=== PATIENT | male | born 1975 | race Caucasian/White ===

== ENCOUNTER 2024-07-12 13:00 | Emergency (ER) | payer SELFPAY ==
--- OUTSIDE RECORDS SUMMARY | 2024-07-12 13:07 | XMS_ITS | Referral Summary ---
Author Organization [facility] Address [address] [place] [address] Care Team Providers Care Loan Associate Name Role Phone No Ref-Primary, Physician Primary Care Provider Shayla Powers PA-C Unavailable [phone] Allergies Active Allergy Reactions Criticality Noted Date Comments Phenytoin 06/05/2011 Medications Multiple Vitamin (MULTIVITAMIN ADULT PO) Take by mouth daily Active busPIRone (BUSPAR) 5 MG tabletIndicatio ns:Situational anxiety Take 1 tablet (5 mg) by mouth 2 times daily 20 tablet 1 Active Additional Information Patient not taking.Reported on 12/26/2023 escitalopram (LEXAPRO) 10 MG tabletIndicatio ns:Anxiety Take 1 tablet (10 mg) by mouth daily 90 tablet 1 4 Active cephALEXin (KEFLEX) 500 MG capsule TAKE ONE CAPSULE BY MOUTH ONE HOUR PRIOR TO PROCEDURE Active amoxicillin-cla vulanate (AUGMENTIN) 875-125 MG tablet TAKE ONE TABLET BY MOUTH TWICE A DAY FOR 10 DAYS. TAKE WITH FOOD OR MILK 4 Active Active Problems Problem Noted Date Diagnosed Date Diverticulitis 12/24/2019 Immunizations Name Administration Dates Next Due Flu, Unspecified 06/30/2010 MMR 03/23/1993 TDAP Vaccine (Adacel) 01/30/2010 TDAP Vaccine (Boostrix) 10/13/2014 Td (Adult), Adsorbed 03/23/1993 Social History Tobacco Use Types Packs/Day Years Used Date Smoking Tobacco: Never Passive Smoke Exposure: Never Smokeless Tobacco: Never Tobacco Cessation:Counseling Given: Not Answered Alcohol Use Standard Drinks/Week Comments Yes 0 (1 standard drink = 0.6 oz pur e alcohol) rare PHQ-2 Answer Date Recorded PHQ-2 Score 3 04/21/2021 Adolescent Education Answer Date Record ed Getting School Help Needed Not on file 05/06 Sex and Gender Information Value Date Recorded Sex Assigned at Not on file Legal Sex Male 3:35 AM MONOTYPE MACHINIST Gender Identity Not on file Sexual Orientation Not on file Last Filed Vital Signs Vital Sign Reading Time Taken Comments Blood Pressure 104/71 12/31/2023 2:52 PM CDT Pulse 63 12/31/2023 2:52 PM CDT Temperature 36.9 C (98.5 F) 12/31/2023 2:52 PM CDT Respiratory Rate 18 08/26/2022 10:35 AM MONOTYPE MACHINIST Oxygen Saturation 96% 12/31/2023 2:52 PM CDT Inhaled Oxygen Concentration - - Weight 95.3 kg (210 lb) 12/31/2023 2:52 PM CDT Height 175.3 cm (5' 9) 12/31/2023 2:52 PM CDT Body Mass Index 31.01 12/31/2023 2:52 PM CDT Plan of Treatment Not on file Procedures Procedure Name Priority Date/Time Associated Diagnosis Comments BASIC METABOLIC PANEL STAT 04/24/2020 11:10 AM CDT OCCULT BLOOD STOOL STAT 08/10/2017 10 :40 PM MONOTYPE MACHINIST from Last 3 Months or Most Recently Relevant to Health Maintenance Results * (ABNORMAL) Basic metabolic panel (04/24/2020 11:10 AM CDT) Sodium 136 133 - 144 mmol/L 04/24/2020 11:32 AM T [facility] Potassium 4.1 3.4 - 5.3 mmol/L 04/24/2020 11:32 AM T [facility] Chloride 103 94 - 109 mmol/L 04/24/2020 11:32 AM T [facility] Carbon Dioxide 26 20 - 32 mmol/L 04/24/2020 11:38 AM T [facility] Anion Gap 7 3 - 14 mmol/L 04/24/2020 11:38 AM T [facility] Glucose 128(H) 70 - 99 mg/dL 04/24/2020 11:38 AM T [facility] Urea Nitrogen 14 7 - 30 mg/dL 04/24/2020 11:38 AM T [facility] Creatinine 1.38(H) 0.66 - 1.25 mg/dL 04/24/2020 11:38 AM T [facility] GFR Estimate 62 >60 mL/min/{1 .73_m2} 04/24/2020 11:38 AM T [facility] Comment: Non GFR Calc Starting 07/24/2018, serum creatinine based estimated GFR (eGFR) will be calculated using the Chronic Kidney Disease Epidemiology Collaboration (CKD-EPI) equation. GFR Estimate If Black 72 >60 mL/min/{1 .73_m2} 04/24/2020 11:38 AM T [facility] Comment: GFR Calc Starting 07/24/2018, serum creatinine based estimated GFR (eGFR) will be calculated using the Chronic Kidney Disease Epidemiology Collaboration (CKD-EPI) equation. Calcium 8.9 8.5 - 10.1 mg/dL 04/24/2020 11:38 AM T [facility] Blood specimen (specimen) 04/24/2020 11:10 AM CDT 04/24/2020 11:14 AM CDT us Gisella Greenwood MD LAB - BLOOD ORDERABLES Final R esult Performing Organization Address City/[facility] Co de Phone Number [facility] [address] [place] [address], [facility] [phone] [facility] [address] [place] [address], [facility] [phone] * (ABNORMAL) Occult blood stool (08/10/2017 10:40 PM MONOTYPE MACHINIST) Occult Blood Positive(A ) NEG^Negati ve 08/10/2017 10:56 PM MONOTYPE MACHINIST [facility] Stool specimen (specimen) STOOL SPECIMEN / Unknown 08/10/2017 10:40 PM MONOTYPE MACHINIST 08/10/2017 10:55 PM MONOTYPE MACHINIST us Javon Alcantar MD LAB - STOOLS ORDERABLES Final R esult [facility] [address] [place] [address], [facility] [phone] from Last 3 Months or Most Recently Relevant to Health Maintenance Advance Directives For more information, please contact: [phone] * Full Code (Latest Code Status on File) Date Activated Date Inactivated Comments 12/24/2019 12:24 AM 12/25/2019 5:34 PM Question Answer Comments Code status determined by: Discussion with herson nt/legal decision maker Care Teams Loan Associate Relationship Specialty Start Date End Date No Ref-Primary, Physician PCP - General 12/23/19 Shayla Powers, PAAyanaC [address] [place] [address] Assigned PCP 01/28/24
--- OUTSIDE RECORDS SUMMARY | 2024-07-12 13:07 | XMS_ITS | Encounter Summary ---
Author Organization [facility] Address [address], [place] [address] Care Team Providers Care Security Coordinator Name Role Phone Needs Pcp, Assignment Primary Care Provider [phone] Encounter Details Date Type Department Care Team (Late st Contact Info) Description 12/17/2012 Orders Only [facility] [address] [place], [place] [id number] Horace Baumann MD [address] [facility] [place] [id number] Social History Tobacco Use Types Packs/Day Years Used Date Smoking Tobacco: Never Assessed Sex and Gender Information Value Date Recorded Sex Assigned at Not on file Gender Identity Not on file Sexual Orientation Not on file documented as of this encounter Plan of Treatment Not on file documented as of this encounter Visit Diagnoses Not on filedocumented in this encounter Care Teams Security Coordinator Relationship Specialty Start Date End Date Needs Pcp, Assignment [place], [place] [id number] PCP - General 04/06/22 documented as of this encounter
--- OUTSIDE RECORDS SUMMARY | 2024-07-12 13:07 | XMS_ITS | Clinical Summary ---
Author Organization [facility] Address [address] [address] Care Team Providers Care Special Effects Designer Name Role Phone Needs Pcp, Assignment Primary Care Provider [phone] Source Comments You are receiving this document as you are listed as the primary care provider,follow-up provider, or the patient has been referred to you for consultation.This is in compliance with the Medicare and[facility] EHR Incentive Program,which states Providers who transition their patient to another setting of careor provider of care or refers their patient to another provider of care shouldprovide summary care record for each transition of care or referral. [facility] Allergies Active Allergy Reactions Criticality Noted Date Comments Phenytoin 05/15/2009 PN: Unknown Reaction Medications Medication Sig Dispensed Refills Start Date End Date Status valACYclovir (VALTREX) 1 g tabletIndications: Recurrent cold sores Take 2 Tablets by mouth two times a day. X 1 DAY with flare of cold sore within 72 hours. 30 Tablet 12/08/2020 Active busPIRone (BUSPAR) 5 MG tabletIndications: Anxiety (HRC) Take 1 Tablet by mouth two times a day for 3 days, THEN 2 Tablets two times a day for 90 days. 366 Tablet 05/03/2021 Active lidocaine (LIDODERM) 5 % patch Apply 1 Patch to skin daily. Leave on for up to 12 hours in a 24 hour period, then remove. 15 Patch 08/31/2021 Active Additional Information Patient not taking.Reported on 08/23/2022 Active Problems Problem Noted Date Diagnosed Date Diverticulitis 10/20/2020 Overview (10/20/2020): Multiple previous flares treated with antibiotics. One flare caused perforation, but did not need surgical intervention. Acne vulgaris 10/20/2020 Overview (10/20/2020): Followed by outside Dermatology clinic. Actinic keratosis 10/20/2020 Overview (10/20/2020): LEFT temporal scalp. Followed by outside Dermatology clinic. 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 2020 10-year ASCVD risk calculated at 1.27%. Obesity (BMI 30-39.9) 10/19/2020 Overview (10/19/2020): Controlled on diet and lifestyle modifications alone. Diverticulitis 12/24/2019 Resolved Problems Problem Noted Date Diagnosed Date Resolved Date Testicle pain 01/13/2012 12/17/2012 Immunizations Name Administration Dates Next Due Flu Vac Preserv Free (3+yrs) 06/30/2010 Influenza, Unspecified Formulation 06/30/2010 MMR 03/23/1993 Pfizer Monovalent 12+ Purple Top 12/02/2020,04/0 04/2021 TDAP (ADACEL) 01/30/2010 Td 03/23/1993 Tdap 10/13/2014 Family History Medical History Relation Name Comments Diabetes Father High Blood Pressure Father High Cholesterol Father Seizure Disorder Daughter 1 Relation Name Status Comments Father Alive Mother Alive Daughter 1 Alive Daughter 2 Alive Maternal Grandfather Maternal Grandmother Paternal Grandfather Paternal Grandmother Alive Son Alive Social History Tobacco Use Types Packs/Day Years Used Date Smoking Tobacco: Never Smokeless Tobacco: Never Alcohol Use Standard Drinks/Week Comments Yes 0 (1 standard drink = 0.6 oz pur e alcohol) occas PHQ-2 Answer Date Recorded PHQ-2 Score 0 10/20/2020 Sex and Gender Information Value Date Recorded Sex Assigned at Not on file Gender Identity Not on file Sexual Orientation Not on file Last Filed Vital Signs Vital Sign Reading Time Taken Comments Blood Pressure 124/78 12/18/2023 2:30 PM CDT Pulse 80 12/18/2023 2:30 PM CDT Temperature 37.2 C (98.9 F) 12/18/2023 2:30 PM CDT Respiratory Rate 16 12/18/2023 2:30 PM CDT Oxygen Saturation 95% 12/18/2023 2:30 PM CDT Inhaled Oxygen Concentration - - Weight 103 kg (227 lb) 05/03/2021 2:38 PM CDT Height 174 cm (5' 8.5) 05/03/2021 2:38 PM CDT Body Mass Index 34.01 05/03/2021 2:38 PM CDT Plan of Treatment Health Maintenance Due Date Last Done Comments Colon Cancer Screening Plan Due 1977 Hep C Screening (Preventive Services) 1977 HIV Screening (Preventive Services) 1993 HepB (1) 1996 Adult Preventive Visit 10/20/2021 10/20/2020 COVID-19 Vaccine ( season) 2024 03/21/2022, 12/02/2020, 11/13/2020 Influenza (#1) 2024 05/30/2022, 03/07, 06/30/2010, Additional history exists DTaP/Tdap/Td (4 - Tdap) 10/13/2024 10/14/19, 01/30/2010, 03/23/1993 Cholesterol 10/20/2025 10/20/2020, 03/09, 01/30/2010 Zoster/Shingles (1 of 2) 11/01/2027 HepA Aged Out No longer eligi ble based on patient's age to complete this topic Hib Aged Out No longer eligi ble based on patient's age to complete this topic IPV (Polio) Aged Out No longer eligi ble based on patient's age to complete this topic RSV Aged Out No longer eligi ble based on patient's age to complete this topic MCV4 Aged Out No longer eligi ble based on patient's age to complete this topic Pneumococcal Aged Out No longer eligi ble based on patient's age to complete this topic Procedures Procedure Name Priority Date/Time Associated Diagnosis Comments LIPID PANEL & DIRECT LDL (IF NEEDED) Routine 10/20/2020 8:24 AM CDT Lipid screening from Last 3 Months or Most Recently Relevant to Health Maintenance Results * (ABNORMAL) Lipid Panel and Direct LDL(If Needed) (10/20/2020 8:24 AM CDT) [facility] Signature Cholesterol 168 0 - 199 mg/dL 10/20/2020 11:55 AM CDT [facility] Triglyceride 143 <=149 mg/dL 10/20/2020 11:55 AM CDT [facility] HDL Cholesterol 34(L) >=40 mg/dL 11:55 AM CDT [facility] LDL, Calculated 105 <130 mg/dL 11:55 AM T [facility] Non HDL Chol, Calculated 134 mg/dL 10/20/2020 11:55 AM T [facility] Cholesterol/HDL Ratio 4.9 10/20/2020 11:55 AM T [facility] Hours Fasting 12 10/20/2020 11:55 AM T [facility] ([facility]) Blood Venipuncture Butterfly / Unknown 10/20/2020 8:24 AM CDT 10/20/2020 8:24 AM CDT Srinivasa Rowell PA-C LAB_1 Performing Organization Address City/State/[facility] Co de Phone Number [facility] [address] [place] [address], [facility] [phone] [facility] ([facility]) [address] [place] [address], [facility] [phone] from Last 3 Months or Most Recently Relevant to Health Maintenance Advance Directives * Full Code (Latest Code Status on File) Date Activated Date Inactivated Comments 04/14/2017 1:46 PM 04/14/2017 6:51 PM Care Teams Special Effects Designer Relationship Specialty Start Date End Date Needs Pcp, [place] [address] PCP - General 04/06/22
--- OUTSIDE RECORDS SUMMARY | 2024-07-12 13:07 | XMS_ITS | Clinical Summary ---
Author Organization [facility] Address [address] [place] [address] Care Team Providers Care Section Supervisor Name Role Phone No Ref-Primary, Physician Primary Care Provider Shayla Powers PA-C Unavailable [phone] Allergies Active Allergy Reactions Criticality Noted [...] on file Legal Sex Male 3:35 AM BREWERY REPRESENTATIVE Gender Identity Not on file Sexual Orientation Not on file Last Filed Vital Signs Vital Sign Reading Time Taken Comments Blood Pressure 104/71 12/31/2023 2:52 PM CDT Pulse 63 12/31/2023 2:52 PM CDT Temperature 36.9 C (98.5 F) 12/31/2023 2:52 PM CDT Respiratory Rate 18 08/26/2022 10:35 AM BREWERY REPRESENTATIVE Oxygen Saturation 96% 12/31/2023 2:52 PM CDT Inhaled Oxygen Concentration - - Weight 95.3 kg (210 lb) 12/31/2023 2:52 PM CDT Height 175.3 cm (5' 9) 12/31/2023 2:52 PM CDT Body Mass Index 31.01 12/31/2023 2:52 PM CDT Plan of Treatment Health Maintenance Due Date Last Done Comments ADVANCE CARE PLANNING 1977 ANNUAL REVIEW OF HM ORDERS 1977 CT COLONOGRAPHY 1977 FLEX SIG 1977 sDNA (Cologuard) 1977 COLONOSCOPY 11/01/1987 HIV SCREENING 1992 HEPATITIS C SCREENING 11/01/1995 HEPATITIS B IMMUNIZATION (1 of 3 - 19+ 3-dose series) 1996 LIPID 2017 COLORECTAL CANCER SCREENING 08/10/2018 FIT 08/10/2018 08/10/2017 YEARLY PREVENTIVE VISIT 10/20/2021 10/20/2020 GLUCOSE 04/24/2023 04/24/2020, 12/06, 12/23/2019, Additional history exists PHQ-2 (once per calendar year) 2023 04/21/2021, 04/21/2021 COVID-19 Vaccine ( - season) 2024 03/21/2022, 12/02/2020, 11/13/2020 INFLUENZA VACCINE (#1) 2024 , 03/21/2022, 06/30/2010 DTAP/TDAP/TD IMMUNIZATION (4 - Td or Tdap) 10/13/2024 10/13/2014, 01/30/2010, 03/23/1993 RSV VACCINE (1 - 1-dose 75+ series) 2052 HPV IMMUNIZATION Aged Out No longer e ligible based on patient's age to complete this topic MENINGITIS IMMUNIZATION Aged Out No l onger eligible based on patient's age to complete this topic Pneumococcal Vaccine: Pediatrics (0 to 5 Years) and At-Risk Patients (6 to 64 Years) Aged Out No longer eligible based on patient's age to complete this topic RSV MONOCLONAL ANTIBODY Aged Out No l onger eligible based on patient's age to complete this topic Procedures Procedure Name Priority Date/Time Associated Diagnosis Comments BASIC METABOLIC PANEL STAT 04/24/2020 11:10 AM CDT OCCULT BLOOD STOOL STAT 08/10/2017 10 :40 PM BREWERY REPRESENTATIVE from Last 3 Months or Most Recently Relevant to Health Maintenance Results * (ABNORMAL) Basic metabolic panel (04/24/2020 11:10 AM CDT) Sodium 136 133 - 144 mmol/L 04/24/2020 11:32 AM [facility] Potassium 4.1 3.4 - 5.3 mmol/L 04/24/2020 11:32 AM [facility] Chloride 103 94 - 109 mmol/L 04/24/2020 11:32 AM [facility] Carbon Dioxide 26 20 - 32 mmol/L 04/24/2020 11:38 AM [facility] Anion Gap 7 3 - 14 mmol/L 04/24/2020 11:38 AM [facility] Glucose 128(H) 70 - 99 mg/dL 04/24/2020 11:38 AM [facility] Urea Nitrogen 14 7 - 30 mg/dL 04/24/2020 11:38 AM [facility] Creatinine 1.38(H) 0.66 - 1.25 mg/dL 04/24/2020 11:38 AM [facility] GFR Estimate 62 >60 mL/min/{1 .73_m2} 04/24/2020 11:38 AM [facility] Comment: Non GFR Calc Starting 07/24/2018, serum creatinine based estimated GFR (eGFR) will be calculated using the Chronic Kidney Disease Epidemiology Collaboration (CKD-EPI) equation. GFR Estimate If Black 72 >60 mL/min/{1 .73_m2} 04/24/2020 11:38 AM CDT [facility] Comment: GFR Calc Starting 07/24/2018, serum creatinine based estimated GFR (eGFR) will be calculated using the Chronic Kidney Disease Epidemiology Collaboration (CKD-EPI) equation. Calcium 8.9 8.5 - 10.1 mg/dL 04/24/2020 11:38 AM CDT [facility] Blood specimen (specimen) 04/24/2020 11:10 AM CDT 04/24/2020 11:14 AM CDT us Gisella Greenwood MD LAB - BLOOD ORDERABLES Final R esult Performing Organization Address City/[facility]/ZIP Co de Phone Number [facility] [address] [place] [address], [facility] [phone] [facility] [address] [place] [address], [facility] [phone] * (ABNORMAL) Occult blood stool (08/10/2017 10:40 PM BREWERY REPRESENTATIVE) Occult Blood Positive(A ) NEG^Negati ve 08/10/2017 10:[address] [facility] Stool specimen (specimen) STOOL SPECIMEN / Unknown 08/10/2017 10:40 PM BREWERY REPRESENTATIVE 08/10/2017 10:55 PM BREWERY REPRESENTATIVE us Javon Alcantar MD LAB - STOOLS ORDERABLES Final R esult Performing Organization Address City/[facility]/ZIP Co de Phone Number [facility] [address] [place] [address], [facility] [phone] from Last 3 Months or Most Recently Relevant to Health Maintenance Advance Directives For more information, please contact: [phone] * Full Code (Latest Code Status on File) Date Activated Date Inactivated Comments 12/24/2019 12:24 AM 12/25/2019 5:34 PM Question Answer Comments Code status determined by: Discussion with herson nt/legal decision maker Care Teams Section Supervisor Relationship Specialty Start Date End Date No Ref-Primary, Physician PCP - General 12/23/19 Shayla Powers PA-C [address] [place] [address] Assigned PCP 01/28/24"
--- OUTSIDE RECORDS SUMMARY | 2024-07-12 13:07 | XMS_ITS | Encounter Summary ---
Author Organization [facility] Address [address] [place] [address] Care Team Providers Care Chief Compressor Station Engineer Name Role Phone No Ref-Primary, Physician Primary Care Provider Shayla Powers PA-C Unavailable Reason for Visit * Reason Comments Medication Refill Encounter Details Date Type Department Care Team (Late st Contact Info) Description 04/10/2024 Refill [facility] [address] [place] [address] [phone] Shayla Powers PA-C [address] [place] [id number] Medication Refill Social History Tobacco Use Types Packs/Day Years Used Date Smoking Tobacco: Never Passive Smoke Exposure: Never Smokeless Tobacco: Never Alcohol Use Standard Drinks/Week Comments Yes 0 (1 standard drink = 0.6 oz pur e alcohol) rare PHQ-2 Answer Date Recorded PHQ-2 Score 3 04/21/2021 Adolescent Education Answer Date Record ed Getting School Help Needed Not on file 05/06 Sex and Gender Information Value Date Recorded Sex Assigned at Not on file Legal Sex Male 3:35 AM CLERICAL ADJUDICATOR Gender Identity Not on file Sexual Orientation Not on file documented as of this encounter Miscellaneous Notes * Telephone Encounter - Jason Crespo RN - 04/10/2024 1:17 PM CDT Pharmacy requested refills that are already active on file. Refused request to pharmacy. documented in this encounter Plan of Treatment Not on file documented as of this encounter Visit Diagnoses Diagnosis Anxiety Anxiety state, unspecified documented in this encounter Additional Health Concerns Assessment Noted Time PHQ-9 Depression Total Score: 10 021 10:39 AM CDT documented as of this encounter Care Teams Chief Compressor Station Engineer Relationship Specialty Start Date End Date No Ref-Primary, Physician PCP - General 12/23/19 Shayla Powers PA-C [address] [place] [address] Assigned PCP 01/28/24 documented as of this encounter
[2024-07-12 13:47] VITALS: BP 129/87; PULSE 71; RESP 16; TEMP 36.7; O2SAT 95; BMI 35.4
--- NOTE | 2024-07-12 15:44 | ED_ITS ---
HPI - General Adult General Chief complaint: Abdominal Pain Stated complaint: diverticulitis flare up Time Seen by Provider: 07/12/24 15:44 History of Present Illness HPI narrative: Pt states he thinks he is experiencing diverticulitis. has had abdominal pain, cramping in left abdomen. Denies fevers/ chills, N/V or diarrhea. Had one cipro left from last bout and took this morning. 48-year-old man presenting to the emergency department with concern of intensive fine abdominal pain. Thinks his diverticulitis is back. Prior to this was in usual state of health. Feeling left sided sharp and colic with persistent abdominal pain. Does have a diagnosis of diverticulitis occurring in similar location with similar symptoms. No dysuria frequency urgency. On review of records looks like prior occurrence was in October of 2021. Ultimately requiring he reports ciprofloxacin and metronidazole. Apparently was much more painful experience at that time he prefer not to experience that again and so is getting on this a little earlier. Has not had fever or chills. No nausea. Did take 1 remaining ciprofloxacin this morning. Denies constipation Related Data Home Medications ?Medication ?Instructions ?Recorded ?Confirmed No Known Home Medications 07/12/24 07/12/24 Allergies Allergy/AdvReac Type Severity Reaction Status Date / Time No Known Drug Allergies Allergy Verified 07/12/24 13:50 Review of Systems Status of ROS: Reports: 6 or more systems reviewed and unremarkable except as noted in History and below [facility] Social History Smoking Status: Never smoker How often do you have a drink containing alcohol: monthly or less AUDIT-C Alcohol total score: 1 Non-prescribed substance use: denies use Exam Narrative: Exam Narrative: Very pleasant. NAD. Skin is warm and dry. Breathing easily. Heart in regular rate and rhythm. Abdomen with present bowel sounds is soft without peritoneal signs. He is however reproducibly moderately tender in the left lower abdomen. Const: Vital Signs, click to edit/add: Vital Signs - 24 hr 07/12/24 13:47 Temperature 98.1 F Pulse Rate [Pulse Oximeter] 71 Respiratory Rate 16 Blood Pressure [Ri ght Upper Arm] 129/87 Pulse Oximetry 95 Oxygen Delivery Me thod Room Air Documenting provider has reviewed patient's vital signs: yes Course Vital Signs Vital signs: Initial Vital Signs Temperature 98.1 F 07/12/24 13:47 Temperature Source Temporal Artery Scan 07/12/24 13:47 Pulse Rate 71 07/12/24 13:47 Pulse Rhythm Regular 07/12/24 13:47 Respiratory Rate 16 07/12/24 13:47 Blood Pressure 129/87 07/12/24 13:47 Blood Pressure Mean 101 07/12/24 13:47 Blood Pressure Position Sitting 07/12/24 13:47 Pulse Oximetry 95 07/12/24 13:47 Oxygen Delivery Method Room Air 07/12/24 13:47 Vital Signs Temperature 98.1 F 07/12/24 13:47 Pulse Rate 71 07/12/24 13:47 Respiratory Rate 16 07/12/24 13:47 Blood Pressure 129/87 07/12/24 13:47 Pulse Oximetry 95 07/12/24 13:47 Oxygen Delivery Method Room Air 07/12/24 13:47 Temperature 98.1 F 07/12/24 13:47 Pulse Rate 71 07/12/24 13:47 Respiratory Rate 16 07/12/24 13:47 Blood Pressure 129/87 07/12/24 13:47 Pulse Oximetry 95 07/12/24 13:47 Oxygen Delivery Method Room Air 07/12/24 13:47 Medical Decision Making MDM Narrative Medical decision making narrative: Differential still might include constipation, urinary tract effect, mesenteric adenitis, enteritis/colitis not fully apparent yet, diverticulitis. Vitals are normal. Presentation is consistent with mild diverticulitis I think it is reasonable to treat as such given his history. This would be his preference with close follow-up as necessary. See patient discharge plan for further discussion Focus on hydration. Gentle diet over the next couple of days. Prescribing ciprofloxacin and metronidazole and [place] for pain from [facility]. Can otherwise temporary take up to 800 mg of ibuprofen per dose Return for marked increase in persistent pain, repeated vomiting, fever. Medical Records Medical records reviewed: Yes I reviewed the patient's medical records Discharge Plan Discharge Clinical Impression: Abdominal pain, Diverticulitis Patient Disposition: Home, Self-Care Condition: Stable Additional Instructions: Focus on hydration. Gentle diet over the next couple of days. Prescribing ciprofloxacin and metronidazole and [place] for pain from [facility]. Can otherwise temporary take up to 800 mg of ibuprofen per dose Return for marked increase in persistent pain, repeated vomiting, fever. Prescriptions: No Action No Known Home Medications Stand Alone Forms: ChatStat Info Instructions
--- OUTSIDE RECORDS SUMMARY | 2024-07-12 16:09 | XMS_ITS | Clinical Summary ---
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 ASSEMBLER Gender Identity Not on file Sexual Orientation Not on file Last Filed Vital Signs Vital Sign Reading Time Taken Comments Blood Pressure 104/71 12/31/2023 2:52 PM CDT Pulse 63 12/31/2023 2:52 PM CDT Temperature 36.9 C (98.5 F) 12/31/2023 2:52 PM CDT Respiratory Rate 18 08/26/2022 10:35 AM GENERATOR ASSEMBLER Oxygen Saturation 96% 12/31/2023 2:52 PM CDT [...] BLOOD STOOL STAT 08/10/2017 10 :40 PM GENERATOR ASSEMBLER from Last 3 Months or Most Recently Relevant to Health Maintenance Results * (ABNORMAL) Basic metabolic panel (04/24/2020 11:10 AM CDT) Sodium 136 133 - 144 mmol/L 04/24/2020 11:32 AM [facility] Potassium 4.1 3.4 - 5.3 mmol/L 04/24/2020 11:32 AM [facility] Chloride 103 94 - 109 mmol/L 04/24/2020 11:32 AM [facility] Carbon Dioxide 26 20 - 32 mmol/L 04/24/2020 11:38 AM [facility] Anion Gap 7 3 - 14 mmol/L 04/24/2020 11:38 AM [facility] Glucose 128(H) 70 - 99 mg/dL 04/24/2020 11:38 AM [facility] Urea Nitrogen 14 7 - 30 mg/dL 04/24/2020 11:38 AM [facility] Creatinine 1.38(H) 0.66 - 1.25 mg/dL 04/24/2020 11:38 AM [facility] GFR Estimate 62 >60 mL/min/{1 .73_m2} 04/24/2020 11:38 AM [facility] Comment: Non GFR Calc Starting 07/24/2018, serum creatinine based estimated GFR (eGFR) will be calculated using the Chronic Kidney Disease Epidemiology Collaboration (CKD-EPI) equation. GFR Estimate If Black 72 >60 mL/min/{1 .73_m2} 04/24/2020 11:38 AM CDT [facility] Comment: GFR Calc Starting 07/24/2018, serum creatinine based estimated GFR (eGFR) will be calculated using the Chronic Kidney Disease Epidemiology Collaboration (CKD-EPI) equation. Calcium 8.9 8.5 - 10.1 mg/dL 04/24/2020 11:38 AM CDT [facility] Blood specimen (specimen) 04/24/2020 11:10 AM CDT 04/24/2020 11:14 AM CDT us Gisella Greenwood MD LAB - BLOOD ORDERABLES Final R esult Performing Organization Address City/[facility]/ZIP Co de Phone Number [facility] [address] [place] [address], [facility] [phone] [facility] [address] [place] [address], [facility] [phone] * (ABNORMAL) Occult blood stool (08/10/2017 10:40 PM GENERATOR ASSEMBLER) Occult Blood Positive(A ) NEG^Negati ve 08/10/2017 10:56 PM GENERATOR ASSEMBLER [facility] Stool specimen (specimen) STOOL SPECIMEN / Unknown 08/10/2017 10:40 PM GENERATOR ASSEMBLER 08/10/2017 10:55 PM GENERATOR ASSEMBLER us Javon Alcantar MD LAB - STOOLS ORDERABLES Final R esult Performing Organization Address City/[facility]/ZIP Co de Phone Number [facility] [address] [place] [address], [facility] [phone] from Last 3 Months or Most Recently Relevant to Health Maintenance Advance Directives For more information, please contact: [phone] * Full Code (Latest Code Status on File) Date Activated Date Inactivated Comments 12/24/2019 12:24 AM 12/25/2019 5:34 PM Question Answer Comments Code status determined by: Discussion with herson nt/legal decision maker Care Teams Plasterer Maintenance Relationship Specialty Start Date End Date No Ref-Primary, Physician PCP - General 12/23/19 Shayla Powers PA-C [address] [place] [address] Assigned PCP 01/28/24
--- OUTSIDE RECORDS SUMMARY | 2024-07-12 16:09 | XMS_ITS | Encounter Summary ---
Author Organization [facility] Address [address], [place] [address] Care Team Providers Care Casket Assembler Name Role Phone Needs Pcp, Assignment Primary Care Provider [phone] Encounter Details Date Type Department Care Team (Late st Contact Info) Description 12/17/2012 Orders Only [facility] [address] [place], [place] [id number] Horace Baumann MD [address] [facility] [place] [address] Social History Tobacco Use Types Packs/Day Years Used Date Smoking Tobacco: Never Assessed Sex and Gender Information Value Date Recorded Sex Assigned at Not on file Gender Identity Not on file Sexual Orientation Not on file documented as of this encounter Plan of Treatment Not on file documented as of this encounter Visit Diagnoses Not on filedocumented in this encounter Care Teams Casket Assembler Relationship Specialty Start Date End Date Needs Pcp, Assignment [place], [place] [address] PCP - General 04/06/22 documented as of this encounter
--- OUTSIDE RECORDS SUMMARY | 2024-07-12 16:09 | XMS_ITS | Encounter Summary ---
Author Organization [facility] Address [address] [place] [address] Care Team Providers Care Player Manager Name Role Phone No Ref-Primary, Physician Primary Care Provider Shayla Powers PA-C Unavailable [phone] Reason for Visit * Reason Comments Medication Refill Encounter Details Date Type Department Care Team (Late st Contact Info) Description 04/10/2024 Refill [facility] [address] [place] [address] [phone] Shayla Powers PA-C [address] [place] [address] [phone] Medication Refill Social History Tobacco Use Types [...] on file Legal Sex Male 3:35 AM COAT EXAMINER Gender Identity Not on file Sexual Orientation [...] documented as of this encounter Care Teams Player Manager Relationship Specialty Start Date End Date No Ref-Primary, Physician PCP - General 12/23/19 Shayla Powers PA-C [address] [place] [address] Assigned PCP 01/28/24 documented as of this encounter
--- OUTSIDE RECORDS SUMMARY | 2024-07-12 16:09 | XMS_ITS | Referral Summary ---
Author Organization [facility] Address [address] [place] [address] Care Team Providers Care Vice President Corporate Communications Name Role Phone No Ref-Primary, Physician Primary Care Provider Shayla Powers PA-C Unavailable [phone] Allergies Active Allergy Reactions Criticality Noted [...] on file Legal Sex Male 3:35 AM LINE REPAIRER Gender Identity Not on file Sexual Orientation Not on file Last Filed Vital Signs Vital Sign Reading Time Taken Comments Blood Pressure 104/71 12/31/2023 2:52 PM CDT Pulse 63 12/31/2023 2:52 PM CDT Temperature 36.9 C (98.5 F) 12/31/2023 2:52 PM CDT Respiratory Rate 18 08/26/2022 10:35 AM LINE REPAIRER Oxygen Saturation 96% 12/31/2023 2:52 PM CDT [...] BLOOD STOOL STAT 08/10/2017 10 :40 PM LINE REPAIRER from Last 3 Months or Most Recently Relevant to Health Maintenance Results * (ABNORMAL) Basic metabolic panel (04/24/2020 11:10 AM CDT) Sodium 136 133 - 144 mmol/L 04/24/2020 11:32 AM T [facility] Potassium 4.1 3.4 - 5.3 mmol/L 04/24/2020 11:32 AM T [facility] Chloride 103 94 - 109 mmol/L 04/24/2020 11:32 AM T [facility] Carbon Dioxide 26 20 - 32 mmol/L 04/24/2020 11:38 AM T [facility] Anion Gap 7 3 - 14 mmol/L 04/24/2020 11:38 AM T [facility] Glucose 128(H) 70 - 99 mg/dL 04/24/2020 11:38 AM T [facility] Urea Nitrogen 14 7 - 30 mg/dL 04/24/2020 11:38 AM T [facility] Creatinine 1.38(H) 0.66 - 1.25 mg/dL 04/24/2020 11:38 AM T [facility] GFR Estimate 62 >60 mL/min/{1 .73_m2} 04/24/2020 11:38 AM T [facility] Comment: Non GFR Calc Starting 07/24/2018, serum creatinine based estimated GFR (eGFR) will be calculated using the Chronic Kidney Disease Epidemiology Collaboration (CKD-EPI) equation. GFR Estimate If Black 72 >60 mL/min/{1 .73_m2} 04/24/2020 11:38 AM T [facility] Comment: GFR Calc Starting 07/24/2018, serum creatinine based estimated GFR (eGFR) will be calculated using the Chronic Kidney Disease Epidemiology Collaboration (CKD-EPI) equation. Calcium 8.9 8.5 - 10.1 mg/dL 04/24/2020 11:38 AM T [facility] Blood specimen (specimen) 04/24/2020 11:10 AM CDT 04/24/2020 11:14 AM CDT us Gisella Greenwood MD LAB - BLOOD ORDERABLES Final R esult Performing Organization Address City/[facility] Co de Phone Number [facility] [address] [place] [address], [facility] [phone] [facility] [address] [place] [address], [facility] [phone] * (ABNORMAL) Occult blood stool (08/10/2017 10:40 PM LINE REPAIRER) Occult Blood Positive(A ) NEG^Negati ve 08/10/2017 10:56 PM LINE REPAIRER [facility] Stool specimen (specimen) STOOL SPECIMEN / Unknown 08/10/2017 10:40 PM LINE REPAIRER 08/10/2017 10:55 PM LINE REPAIRER us Javon Alcantar MD LAB - STOOLS ORDERABLES Final R esult [facility] [address] [place] [address], [facility] [phone] from Last 3 Months or Most Recently Relevant to Health Maintenance Advance Directives For more information, please contact: [phone] * Full Code (Latest Code Status on File) Date Activated Date Inactivated Comments 12/24/2019 12:24 AM 12/25/2019 5:34 PM Question Answer Comments Code status determined by: Discussion with herson nt/legal decision maker Care Teams Vice President Corporate Communications Relationship Specialty Start Date End Date No Ref-Primary, Physician PCP - General 12/23/19 Shayla Powers, PAAyanaC [address] [place] [address] Assigned PCP 01/28/24
--- OUTSIDE RECORDS SUMMARY | 2024-07-12 16:09 | XMS_ITS | Clinical Summary ---
Author Organization [facility] Address [address] [address] Care Team Providers Care Record Producer Name Role Phone Needs Pcp, Assignment Primary Care Provider [phone] Source Comments You are receiving this document as you are listed as the primary care provider,follow-up provider, or the patient has been referred to you for consultation.This is in compliance with the Medicare and[employer] EHR Incentive Program,which states Providers who transition their patient to another setting of careor provider of care or refers their patient to another provider of care shouldprovide summary care record for each transition of care or referral. [facility] Allergies Active Allergy Reactions Criticality Noted Date [...] Direct LDL(If Needed) (10/20/2020 8:24 AM CDT) [facility] Signature Cholesterol 168 0 - 199 mg/dL 10/20/2020 11:55 AM CDT [facility] Triglyceride 143 <=149 mg/dL 10/20/2020 11:55 AM CDT [facility] HDL Cholesterol 34(L) >=40 mg/dL 11:55 AM CDT [facility] LDL, Calculated 105 <130 mg/dL 11:55 AM T [facility] Non HDL Chol, Calculated 134 mg/dL 10/20/2020 11:55 AM T [facility] Cholesterol/HDL Ratio 4.9 10/20/2020 11:55 AM T [facility] Hours Fasting 12 10/20/2020 11:55 AM T [facility] ([facility]) Blood Venipuncture Butterfly / Unknown 10/20/2020 8:24 AM CDT 10/20/2020 8:24 AM CDT Srinivasa Rowell PA-C LAB_1 Performing Organization Address City/State/[facility] Co de Phone Number [facility] [address] [place] [address], [facility] [phone] [facility] ([facility]) [address] [place] [address], [facility] [phone] from Last 3 Months or Most Recently Relevant to Health Maintenance Advance Directives * Full Code (Latest Code Status on File) Date Activated Date Inactivated Comments 04/14/2017 1:46 PM 04/14/2017 6:51 PM Care Teams Record Producer Relationship Specialty Start Date End Date Needs Pcp, [place] [address] PCP - General 04/06/22
== END 2024-07-12 16:23 | disposition home or self-care (01) ==
PROVIDERS: Emergency Provider Family Medicine
DX: K57.32 Diverticulitis of large intestine without perforation or abscess without bleeding (principal)
CPT/HCPCS: 99283; 99284

== ENCOUNTER 2025-01-19 19:48 | Emergency (ER) | payer SELFPAY ==
--- OUTSIDE RECORDS SUMMARY | 2003-08-06 19:00 | XMS_ITS | Continuity of Care Document ---
Author Name [facility] Organization DOD-MS Care Team Providers Care Whale Fisherman Name Role Phone [facility]OD-MS Unavailable Unavailable Problems Combined list of problems from Department of Defense and Veterans Affairs facilities. It does not include entries that were removed or entered in error. Problem Status Onset Date Problem Type Date of Resolution Comments Source ABDOM PAIN, UNSP SITE Active Condition [facility]
--- OUTSIDE RECORDS SUMMARY | 2025-01-19 19:50 | XMS_ITS | Clinical Summary ---
Author Organization [facility] Address [address] [place] [address] Care Team Providers Care Toll Bridge Operator Name Role Phone Pcp, No Primary Care Provider Unavailabl e Allergies Active Allergy Reactions Criticality Noted Date Comments Phenytoin *Unknown - Childhood Rxn 05/15/2009 PN: Unknown Reaction Medications ascorbic acid (VITAMIN C ORAL) Take 1 Tablet by mouth once daily. Active medication order composer Take 1 Capsule by mouth once daily. OTC testosterone booster. Active acetaminophen (TYLENOL EXTRA STRGTH) 500 mg tabletIndications:D islocation of right knee, initial encounter Take 2 Tablets (1,000 mg) by mouth every 8 hours. Max acetaminophen dose: 4000mg in 24 hrs. 0 12/05/19 23 Active ibuprofen (ADVIL; MOTRIN) 600 mg tabletIndications:D islocation of right knee, initial encounter Take 1 Tablet (600 mg) by mouth every 6 hours. Maximum of 3200 mg in 24 hours. 0 12/05/19 23 Active lidocaine 4 % topical patchIndications:Di slocation of right knee, initial encounter Apply to intact skin to cover most painful area for max 12hr per 24hr period. 0 12/06/19 23 Active aspirin (ECOTRIN) 81 mg enteric coated tablet Take 1 Tablet (81 mg) by mouth once daily for 30 days. 30 Tablet 3 6:04 PM CDT 02/29/20 23 Active durable medical equipment (DME)Indications:H/ O knee surgery,Aftercare following surgery of the musculoskeletal system Right knee custom fit PCL brace 1 Each 06/15/20 23 Active Active Problems Problem Noted Date Diagnosed Date s/p right knee arthroscopic ACL reconstruction with BTB autograft and lateral meniscus repair DOS 02/28/2023 by Javon Nunez MD 09/14/2023 s/p right knee open posterol ateral corner repair & capsular repair, biceps femoris repair, peroneal nerve neurolysis, LCL reconstruction DOS 12/14/[address] Nunez 01/12/2023 Knee dislocation, right, initial encounter 12/03 Actinic keratosis 10/20/2020 Overview (02/24/2023): LEFT temporal scalp. Followed by outside Dermatology clinic. Obesity (BMI 30-39.9) 10/19/2020 Overview (02/24/2023): Controlled on diet and lifestyle modifications alone. Immunizations Immunization Administration Dates Next Due COVID-19 vaccine (Moderna 100mcg/0.5mL) PF, MDV 03/21/2022 COVID-19 vaccine (Real Time Wine[employer] 30mcg/0.3mL) P F, MDV 12/02/2020,11/13/2020 Influenza Virus, Unspecified 03/21/2022,06/30/20 10 Influenza,CCIIV4 PRESERV FREE 05/30/2022 MMR 03/23/1993 Td (Age >=7 Years) 03/23/1993 Tdap 10/13/2014,01/30/2010 Family History Medical History Relation Name Comments Good Health Father Good Health Mother Relation Name Status Comments Father Alive Mother Alive Social History Tobacco Use Types Packs/Day Years Used Date Smoking Tobacco: Never Passive Smoke Exposure: Never Smokeless Tobacco: Never Tobacco Cessation:Counseling Given: Not Answered Alcohol Use Standard Drinks/Week Comments No 0 (1 standard drink = 0.6 oz pur e alcohol) Social Connections Answer Date Recorded Frequency of Communication with Friends and Fami ly 0 12/12/2022 Financial Resource Strain Answer Date R ecorded Difficulty of Paying Living Expenses 3 12/12/2022 Difficulty of Paying Living Expenses Not on file 12/12/2022 Food Insecurity Answer Date Recorded Worried About Running Out of Food in the Last Ye ar 1 12/12/2022 Transportation Needs Answer Date Record ed Lack of Transportation (Medical) 1 12/12/2022 Housing Stability Answer Date Recorded Unable to Pay for Housing in the Last Year 1 12/12/2022 Sex and Gender Information Value Date Recorded Sex Assigned at Not on file Legal Sex Male 8:05 AM AMBULANCE ATTENDANT Gender Identity Not on file Sexual Orientation Not on file Obstetrics History Last Filed Vital Signs Vital Sign Reading Time Taken Comments Blood Pressure 110/82 02/24/2023 10:20 AM CDT Pulse 58 02/24/2023 10:20 AM CDT Temperature 36.7 C (98 F) 02/24/2023 10:20 AM CDT Respiratory Rate 16 12/04/2022 7:38 AM CDT Oxygen Saturation 98% 02/24/2023 10:20 AM CDT Inhaled Oxygen Concentration - - Weight 108.9 kg (240 lb) 02/24/2023 10:20 AM CDT Height 175.3 cm (5' 9) 02/24/2023 10:20 AM CDT Body Mass Index 35.44 02/24/2023 10:20 AM CDT Plan of Treatment Health Maintenance Due Date Last Done Comments Depression screening for age 12+ 1989 HIV for age 15-65 1992 Hepatitis C screening for ag e 18-79 11/01/1995 Hepatitis B series for 19+ ( 1 of 3 - 19+ 3-dose series) 1996 Colonoscopy through age 75 2022 Lipids for age 45-75 2022 BMI (ht and wt on same day) for age 18+ 02/25/2024 02/24/2023, 12/12/2022 COVID-19 vaccine series ( season) 2024 03/21/2022, 12/02/2020, 11/13/2020 Tetanus booster 10/13/2024 10/13/2014, 01/30/2010, 03/23/1993 Influenza Vaccine (Season Ended) 2025 05/30/2022, 03/21/2022, 06/30/2010 Tdap Completed 10/13/2014, 01/30/2010 Pneumococcal series for age 6-49 Aged Out No longer eligible b ased on patient's age to complete this topic Insurance * Guarantor: Milan Duffy Account Type Relation to Patient Date of Phone Billing Address Personal/Family Self 1975 [address] [facility] [place], [place] [phone] MEDICAID * Guarantor: Milan Duffy Account Type Relation to Patient Date of Phone Billing Address Personal/Family Self 1975 [address] [facility] [address] [place], [place] [phone] * Guarantor: Milan Duffy Account Type Relation to Patient Date of Phone Billing Address Motor Vehicle Self 1975 [address] [facility] [place], [place] [phone] [facility] Advance Directives * Full Code (Latest Code Status on File) Date Activated Date Inactivated Comments 12/03/2022 2:45 PM 12/04/2022 4:06 PM Question Answer Comments Code Status Discussion: Reviewed Preferences Care Teams Toll Bridge Operator Relationship Specialty Start Date End Date Pcp, No . PCP - General 08/17/16
--- OUTSIDE RECORDS SUMMARY | 2025-01-19 19:50 | XMS_ITS | Clinical Summary ---
Author Organization [facility] Address [address] [address] Care Team Providers Care Vice President Of Academic Affairs Name Role Phone Needs Pcp, Assignment Primary Care Provider [phone] Source Comments You are receiving this document as you are listed as the primary care provider,follow-up provider, or the patient has been referred to you for consultation.This is in compliance with the Medicare and[facility] EHR Incentive Program,which states Providers who transition their patient to another setting of careor provider of care or refers their patient to another provider of care shouldprovide summary care record for each transition of care or referral. [facility] Allergies Active Allergy Reactions Criticality Noted Date Comments Phenytoin 05/15/2009 PN: Unknown Reaction Medications valACYclovir (VALTREX) 1 g tabletIndicatio ns:Recurrent cold sores Take 2 Tablets by mouth two times a day. X 1 DAY with flare of cold sore within 72 hours. 30 Tablet 1 Active busPIRone (BUSPAR) 5 MG tabletIndicatio ns:Anxiety (HRC) Take 1 Tablet by mouth two times a day for 3 days, THEN 2 Tablets two times a day for 90 days. 366 Tablet 1 Active lidocaine (LIDODERM) 5 % patch Apply 1 Patch to skin daily. Leave on for up to 12 hours in a 24 hour period, then remove. 15 Patch 2 Active Additional Information Patient not taking.Reported on [...] Resolved Date Testicle pain 01/13/2012 12/17/2012 Immunizations Immunization Administration Dates Next Due Flu Vac Preserv [...] at Not on file Legal Sex Male 4:50 AM CDT Gender Identity Not on file Sexual Orientation Not on file Occupation Industry Job Start Date Job End Date Not on file Not on file Not on file Not on file Last Filed Vital Signs [...] 1977 HIV Screening (Preventive Services) 1993 HepB Vaccine (1) 1996 Adult Preventive Visit 10/20/2021 10/20/2020 COVID-19 Vaccine ( season) 2024 03/21/2022, 12/02/2020, 11/13/2020 DTaP/Tdap/Td Vaccine (4 - Tdap) 10/13/2024 10/13/2014, 01/30/2010, 03/23/1993 Influenza Vaccine (Season Ended) 2025 05/30/2022, 03/21/2022, 06/30/2010, Additional history exists Cholesterol 10/20/2025 10/20/2020, 03/09, 01/30/2010 Zoster/Shingles Vaccine (1 of 2) 11/01/2027 HepA Vaccine Aged Out No longer eligi ble based on patient's age to complete this topic Hib Vaccine Aged Out No longer eligi ble based on patient's age to complete this topic IPV (Polio) Vaccine Aged Out No longe r eligible based on patient's age to complete this topic MCV4 Vaccine Aged Out No longer eligi ble based on patient's age to complete this topic Meningococcal B Vaccine Aged Out No l onger eligible based on patient's age to complete this topic Pneumococcal Vaccine Aged Out No long er eligible based on patient's age to complete this topic Procedures Procedure Name Priority Date/Time Associated Diagnosis Comments LIPID PANEL & DIRECT LDL (IF NEEDED) Routine 10/20/2020 8:24 AM CDT Lipid screening from Last 3 Months or Most Recently Relevant to Health Maintenance Results * (ABNORMAL) Lipid Panel and Direct LDL(If Needed) (10/20/2020 8:24 AM CDT) [facility] Cholesterol 168 0 - 199 mg/dL 10/20/2020 11:55 AM CDT [facility] Triglyceride 143 <=149 mg/dL 10/20/2020 11:55 AM T [facility] HDL Cholesterol 34(L) >=40 mg/dL 11:55 AM CDT [facility] LDL, Calculated 105 <130 mg/dL 11:55 AM T [facility] Non HDL Chol, Calculated 134 mg/dL 10/20/2020 11:55 AM T [facility] Cholesterol/HDL Ratio 4.9 10/20/2020 11:55 AM T [facility] Hours Fasting 12 10/20/2020 11:55 AM T [facility] (PN) Blood Venipuncture Butterfly / Unknown 10/20/2020 8:24 AM CDT 10/20/2020 8:24 AM CDT us Srinivasa Rowell PA-C LAB_1 Final Res ult [facility] [address] [place] [address], [facility] [phone] [facility] (PN) [address] [place] [address], [facility] [phone] from Last 3 Months or Most Recently Relevant to Health Maintenance Advance Directives * Full Code (Latest Code Status on File) Date Activated Date Inactivated Comments 04/14/2017 1:46 PM 04/14/2017 6:51 PM Care Teams Vice President Of Academic Affairs Relationship Specialty Start Date End [place] [address] PCP - General 04/06/22
--- OUTSIDE RECORDS SUMMARY | 2025-01-19 19:50 | XMS_ITS | Clinical Summary ---
Author Organization [facility] Address [address] [place] [address] Care Team Providers Care Radio Frequency Design Engineer Name Role Phone No Ref-Primary, Physician Primary Care Provider Shayla Powers PA-C Unavailable [phone] Allergies Active Allergy Reactions Criticality Noted [...] Noted Date Diagnosed Date Diverticulitis 12/24/2019 Immunizations Immunization Administration Dates Next Due Flu, Unspecified 06/30/2010 MMR (MMRII) 03/23/1993 TDAP Vaccine (Adacel) 01/30/2010 TDAP Vaccine [...] on file Legal Sex Male 3:35 AM [employer] Gender Identity Not on file Sexual Orientation Not on file Last Filed Vital Signs Vital Sign Reading Time Taken Comments Blood Pressure 104/71 12/31/2023 2:52 PM CDT Pulse 63 12/31/2023 2:52 PM CDT Temperature 36.9 C (98.5 F) 12/31/2023 2:52 PM CDT Respiratory Rate 18 08/26/2022 10:35 AM [facility] [employer] Oxygen Saturation 96% 12/31/2023 2:52 PM CDT [...] 1992 HEPATITIS C SCREENING 11/01/1995 HEPATITIS B VACCINE (1 of 3 - 19+ 3-dose series) 1996 LIPID 2017 COLORECTAL CANCER SCREENING 08/10/2018 FIT 08/10/2018 08/10/2017 YEARLY PREVENTIVE VISIT 10/20/2021 10/20/2020 DIABETES SCREENING 04/24/2023 04/24/2020, 0 12/25/2019, 12/23/2019, Additional history exists COVID-19 VACCINE ( season) 2024 03/21/2022, 12/02/2020, 11/13/2020 PHQ-2 (once per calendar year) 2024 04/21/2021, 04/21/2021 DTAP/TDAP/TD VACCINE (4 - Td or Tdap) 10/13/2024 10/13/2014, 01/30/2010, 03/23/1993 INFLUENZA VACCINE (Season Ended) 2025 05/30/2022, 03/21/2022, 06/30/2010 ZOSTER VACCINE (1 of 2) 11/01/2027 HPV VACCINE Aged Out No longer eligi ble based on patient's age to complete this topic MENINGITIS VACCINE Aged Out No longer eligible based on patient's age to complete this topic PNEUMOCOCCAL VACCINE: PEDIATRICS (0 to 5 YEARS) AND AT-RISK PATIENTS (6 to 49 YEARS) Aged Out No longer eligible based on patient's age to complete this topic Procedures Procedure Name Priority Date/Time Associated Diagnosis Comments BASIC METABOLIC PANEL STAT 04/24/2020 11:10 AM CDT OCCULT BLOOD STOOL STAT 08/10/2017 10 :40 PM [facility] [employer] from Last 3 Months or Most Recently Relevant to Health Maintenance Results * (ABNORMAL) Basic metabolic panel (04/24/2020 11:10 AM CDT) Sodium 136 133 - 144 mmol/L 04/24/2020 11:32 AM [facility] Potassium 4.1 3.4 - 5.3 mmol/L 04/24/2020 11:32 AM [facility] Chloride 103 94 - 109 mmol/L 04/24/2020 11:32 AM [facility] Carbon Dioxide 26 20 - 32 mmol/L [...] >60 mL/min/{1 .73_m2} 04/24/2020 11:38 AM CDT [facility] Comment: GFR Calc Starting 07/24/2018, serum creatinine based estimated GFR (eGFR) will be calculated using the Chronic Kidney Disease Epidemiology Collaboration (CKD-EPI) equation. Calcium 8.9 8.5 - 10.1 mg/dL 04/24/2020 11:38 AM CDT [facility] Blood specimen (specimen) 04/24/2020 11:10 AM CDT 04/24/2020 11:14 AM CDT us Gisella Greenwood MD LAB - BLOOD ORDERABLES Final R esult Performing Organization Address City/[facility] Co de Phone Number [facility] [address] [place] [address], [facility] [phone] [facility] [address] [place] [address], [facility] [phone] * (ABNORMAL) Occult blood stool (08/10/2017 10:40 PM [facility]) Occult Blood Positive(A ) NEG^Negati ve 08/10/2017 10:56 PM [facility] Stool specimen (specimen) STOOL SPECIMEN / Unknown 08/10/2017 10:40 PM [facility] 08/10/2017 10:55 PM [facility] us Javon Alcantar MD LAB - STOOLS ORDERABLES Final R esult Performing Organization Address City/[facility] Co de Phone Number [facility] [address] [place] [address], [facility] [phone] from Last 3 Months or Most Recently Relevant to Health Maintenance Advance Directives For more information, please contact: [phone] * Full Code (Latest Code Status on File) Date Activated Date Inactivated Comments 12/24/2019 12:24 AM 12/25/2019 5:34 PM Question Answer Comments Code status determined by: Discussion with patie nt/legal decision maker Care Teams Radio Frequency Design Engineer Relationship Specialty Start Date End Date No Ref-Primary, Physician PCP - General 12/23/19 Shayla Powers PA-C [address] [place] [address] Assigned PCP 01/28/24
--- OUTSIDE RECORDS SUMMARY | 2025-01-19 19:51 | XMS_ITS | Data Portability ---
Author Organization [place] [facility] Address [address] [place] [address] Assessment Encounter Date Assessment Date Assessment LastModified by Organization Details LastModified Time 08/17/2022 08/17/2022 This is a 46 year old male here for consideration for vasectomy [email or web address] Not available 08/17/2022 11:55:40 Plan of Treatment Reminders Order Date Submit Date Provider Last Modified By Organization Details Last Modified Time Details Appointments None recorded. Lab testosteron e, bioavailabl e, serum 2022 023 [facility], [address] [facility], [place], [address], 3 12:14:41 Referral None recorded. Procedures None recorded. Surgeries None recorded. Imaging None recorded. Medication Orders cephalexin 500 mg capsule 2022 023 [id number] [id number], [address] [place], [address], 3 14:48:35 Patient TargetsNo targets recorded. Patient Instructions Encounter Date Encounter Id Patient Instructions Last Modified By Organization Details Last Modified Time 08/17/2022 [id number] We discussed vasectomy and the risks and benefits of the procedure. Vasectomy is considered a permanent form of contraception. Though it is reversible with subsequent surgery, it should be considered permanent as this may not always be successful. We discussed that following the procedure, he should not consider himself to be sterile until he has completed a post-vasectomy semen analysis which confirms azoospermia. We discussed that in less than 1% of cases, men may not become azoospermic following this procedure. The reasons for this may be technical failure, early re-canalization, or presence of an accessory vas deferens not recognized at the time of the procedure. This is typically treated with repeat vasectomy. We also discussed that in even rarer cases, a man may be found to be azoospermic following the procedure but then go on to have a delayed . This is known as late re-canalization and occurs in less than 1% of cases. We discussed additional pertinent risks including bleeding, infection, sperm granuloma formation, chronic scrotal contents pain (~5%), and injury to the spermatic cord structures. He is a good candidate for in office vasectomy. He would like to proceed. [email or web address] Not available 08/17/2022 12:01:57 10/04/2022 [id number] 46 y/o male presents for an evaluation of fatigue. Discussed symptoms of hypogonadism such as decreased libido, low energy, infertility, weight gain/increased body fat, enlarged breasts, osteoporosis, reduced facial/body hair, and mood disturbances. Informed patient testosterone is at its highest in the morning shortly after waking up which is why we obtain labs in the morning. Discussed with patient the variety of routes we can prescribe testosterone such as oral tablets/capsules, topical, injection, and implants. Local reactions are the most common side effects with testosterone replacement. Testicular atrophy is a risk of using testosterone replacement. Sleep apnea may worsen on testosterone replacement. Blood sugars can be affected while on testosterone. We monitor red blood cells due to risk of body creating more than necessary red blood cells while on testosterone. Relatively small increased risk of developing blood clots while on testosterone. PSA will need to be monitored due to contraindication of tetsosterone replacement with prostate cancer. Testosterone replacement lowers a male's fertility as well. Upon discontinuing testosterone replacement, there is a risk fertility status does not rebound. Discussed FDA warning about cardiovascular risk and testosterone replacement. Testosterone levels to be assessed in near future. I will call with results. [email or web address] Not available 10/04/2022 15:16:15 Reason for Referral None Reported. Results Created Date Observation Date Name Description Value Unit Range Abnormal Flag Note LastModifiedBy Organization Detail LastModifiedTime 10/11/19 23 10/10/2022 BIOAV AILAB LE TESTO STERO NE testosterone 381.21 NG/dL 175.00 -781.0 0 This lab resul t is being provi ded to you and your provi fadi at the same time in compl iance with the Centu ry Cures Act. Your provi fadi may not have had time to revie w and make recom menda tions based on the resul t. Pleas e allow up to one week for provi fadi revie w. Not Available [facility] [address] [facility] [address], [place], [address], 10/12/2022 12:14:41 10/11/19 23 10/10/2022 BIOAV AILAB LE TESTO STERO NE testosterone , free 7.5 NG/dL 9.0-30 .0 low Not Available [facility] [address] [place] [address] [address], [place], [address], 10/12/2022 12:14:41 10/11/19 23 10/10/2022 BIOAV AILAB LE TESTO STERO NE % ftesto 2.0 % Not Available [facility] [address] [facility] [address], [place], [address], 10/12/2022 12:14:41 10/11/19 23 10/10/2022 BIOAV AILAB LE TESTO STERO NE testosterone , bioavailable 177 NG/dL 40-235 Not Available [facility] [address] [facility] [address], [place], [address], 10/12/2022 12:14:41 10/11/19 23 10/10/2022 BIOAV AILAB LE TESTO STERO NE shbg 34.5 nmol/ L 13.3-8 9.5 Not Available [facility] [address] [facility] [address], [place], [address], 10/12/2022 12:14:41 10/11/19 23 10/10/2022 BIOAV AILAB LE TESTO STERO NE albumin-olym pus 4.4 g/dL 3.5-5. 0 This lab resul t is being provi ded to you and your provi fadi at the same time in compl iance with the [facility] Care Act of 2016. Your provi fadi may not have had time to revie w and make recom menda tions based on the resul t. Soo kearney allow up to one week for provi fadi revie w. Not Available [facility] [address] [facility] [address], [place], [address], 10/12/2022 12:14:41 Result Notes None recorded. Procedures Surgical History Date Name Laterality Status Provider Name and Address Organization Details Recorded Time 11/17/19 23 SH Vasectomy cancelled Everett Jones MD [address] [facility],[address], [place], [address], [facility] 11/10/2022 13:45:06 10/11/19 23 Blood Draw/PAN WASHER/PSA RESULTS completed Mansi Khan [facility] 10/10/2022 11:26:58 08/07/19 08 Appendectomy completed Dane Banks [facility] 08/17/2022 11:45:03 Imaging Results None recorded. Procedure Notes None recorded. Medical Equipment None Reported. Allergies Allergen ID Allergen Name Allergen Category Reaction Reaction Severity Criticality Documentation Date Start Date Code Code System Note Provider Name and Address Organization Details Recorded Time 779684 Dilantin medicatio n Not available Not available Not available 08/17/202213694 0 RxNorm Dane mares, [facility] 11:43:30 Medications Name Sig Start Date Stop Date Status Note LastModified by Organization Details LastModified Time cyclobenz aprine 10 mg tablet TAKE ONE TABLET BY MOUTH THREE TIMES A DAY NEEDED FOR MUSCLE SPASMS FOR PU TO 5 DAYS. 08/17 completed Not Available Not Available Not Available methocarb mis 500 mg tablet active Not Available Not Available No t Available buspirone 5 mg tablet TAKE ONE TABLET BY MOUTH TWICE A DAY FOR 3 DAYS , THEN 2 TABLETS TWO TIMES A DAY FOR 90 DAYS 08/17 completed Not Available Not Available Not Available meloxicam 15 mg tablet active Not Available Not Available Not Available aspirin 81 mg tablet,de layed release active Not Available Not Available Not Available oxycodone -acetamin ophen 5 mg-325 mg tablet TAKE 1-2 TABLETS BY MOUTH EVERY 4-6 HOURS IF NEEDED FOR PAIN. MAX 12 TABS/24 HOURS. active Not Available Not Available No t Available cephalexi n 500 mg capsule TAKE ONE CAPSULE BY MOUTH ONE HOUR PRIOR TO PROCEDUR E active Not Available Not Available No t Available ondansetr on 4 mg disintegr ating tablet active Not Available Not Available Not Available oxycodone 5 mg tablet active Not Available Not Available Not Available hydroxyzi ne pamoate 25 mg capsule active Not Available Not Available Not Available Flowflex COVID-19 Antigen Home Test kit USE FOR HOME TESTING active HN: Patient reports no longer taking Not Available Not Available Not Available Vitals Date Recorded Body height Body mass index (BMI) Body weight Provider Name and Address Organization Details Last Updated DateTime 08/17/2022 175.26 cm 33.2 kg/m2 859164.28 g Dane Banks [facility] 08/17/2022 11:43:14 Date Recorded Body height Body mass index (BMI) Body weight Provider Name and Address Organization Details Last Updated DateTime 10/04/2022 175.26 cm 33.2 kg/m2 547854.28 g Daniel Mcintyre [facility] 10/04/2022 14:53:29 Social History Question Answer Notes LastModified by [employer] Details LastModified Time Tobacco Smoking Status Never Smoker Not Available Health Note 09/30/2022 14:48:32 What Is Your Level Of Caffeine Consumption? Moderate [email or web address] Information not available 09/30/2022 How Much Tobacco Do You Chew? None [email or web address] Information not available 09/30/2022 What Was The Date Of Your Most Recent Tobacco Screening? 10/04/2022 [email or web address] Information not available 09/30/2022 Are You Sexually Active? Yes [email or web address] Information not available 09/30/2022 Has Tobacco Cessation Counseling Been Provided? No Information not available 08/17/2022 Sex: Unknown Functional Status Question Answer Note LastModified by [email or web address] Details LastModified Time Do you use any illicit or recreational drugs? No [email or web address] Information not available 09/30/2022 Do you or have you ever used any other forms of tobacco or nicotine? No Information not available 08/17/2022 What is your level of alcohol consumption? Occasional [email or web address] Information not available 09/30/2022 Do you or have you ever used smokeless tobacco? Never used smokeless tobacco [email or web address] Information not available 09/30/2022 Do you or have you ever used e-cigarettes or vape? Never used electronic cigarettes [email or web address] Information not available 09/30/2022 Mental Status None recorded. Family History Nothing Reported. Medical History Condition Response High Blood Pressure N Kidney Stones N Depression N Lung Disease N GERD/Acid Reflux N Sexually Transmitted Infection N Diabetes N Bleeding Disorder N Cancer N High Cholesterol N Heart Disease N Immunizations Vaccine Type Date Status Note Provider Nam e and Address Organization Details Recorded Time influenza, unspecified formulation 2 completed Not Available Health Note 09/30/2022 14:48:36 SARS-COV-2 (COVID-19) vaccine, UNSPECIFIED 2 completed Not Available Health Note 09/30/2022 14:48:36 Past Encounters Encounter ID Performer Location Encounter Start Date Encounter Closed Date Diagnosis/Indication Diagnosis SNOMED-CT Code Diagnosis ICD10 Code Diagnosis Note [id number] NYA Clancy [facility] [address] [address] 08/17/2022 11:32:48 08/17/2022 12:26:47 Contraception care management 707428375 Z30.09 Counseling for sterilization done 5907175226 9103 Z30.09 [id number] CRUZITO ZUNIGA [facility] [address] [address] 10/04/2022 14:51:04 10/04/2022 15:33:07 Fatigue 13552390 R53.83 [id number] CRUZITO ZUNIGA [facility] [address] [address] 10/10/2022 11:09:56 10/10/2022 11:28:01 Fatigue 62318884 R53.83 Health Concerns Section Related Observation LastModified by Organization Detai ls LastModified Time None Recorded Concern Status LastModified by Organization Details LastModified Time None Recorded Advance Directives Directive None Recorded Payers Insurance Date Sequence Insurance Name Policy Number Policy Chris Covered Member ID Chris Member ID Guarantor Name 02/10/2023 1 [place] [id number] Milan Duffy [id number] Milan Duffy Notes Date Note Type Note Provider Name and Address Organization Details Recorded Time 08/17/2022 text/html This is a 46 yea r old male here for consideration for vasectomy. He has 3 children. He and his partner desire no more. He has no history of prior groin or scrotal surgery. He is aware that vasectomy is considered a permanent form of contraception. NYA Valdez [address] [place] [address],[address], [place], [address], [facility] 08/17/2022 12:05:37 10/04/2022 text/html Fatigue 46 y/o male presents for an evaluation of fatigue, lower muscle mass production, decreased muscular endurance and depressed mood. His symptoms have been present for the past 6+ months. He had his testosterone [facility] drawn [facility] 2019. He was told his testosterone levels are on lower end of normal, but he did not pursue exogenous replacement at that time. He tried OTC natural supplements which helped mildly with symptoms. He is interested in reassessment of his testosterone levels. Good libido. He is able to achieve an ehs of 3-4 with good maintenance. No pain or curvature to penis with erections. He is averaging approximately 6-8 hours of sleep per night. No sleep apnea per patient. Dedicated exercise regiment 4-5x a week. CRUZITO ZUNIGA [address] [place] [address],[address], [place], [address], [facility] 10/04/2022 15:16:31
--- OUTSIDE RECORDS SUMMARY | 2025-01-19 19:51 | XMS_ITS | Encounter Summary ---
Author Organization [facility] Address [address] [address] Care Team Providers Care Field Merchandiser Name Role Phone Needs Pcp, Assignment Primary Care Provider [phone] Encounter Details Date Type Department Care Team (Late st Contact Info) Description 12/17/2012 Orders Only [facility] [address] [place] [id number] Horace Baumann MD [address] [place] [address] Social History Tobacco Use Types Packs/Day Years [...] on filedocumented in this encounter Care Teams Field Merchandiser Relationship Specialty Start Date End Date Needs Pcp, Assignment [place], [place] [id number] PCP - General 04/06/22 documented as of this encounter
[2025-01-19 19:56] VITALS: BP 122/88; PULSE 62; RESP 16; TEMP 36.7; O2SAT 96; BMI 36.2
--- NOTE | 2025-01-19 20:07 | ED.ABDPAIN ---
HPI - Abdominal Pain General Time Seen by Provider: 20:07 Date Seen: 01/19/25 Chief Complaint: Abdominal Pain Stated Complaint: Diverticulitis Time Seen by Provider: 01/19/25 19:51 Source: patient and RN notes reviewed Mode of arrival: ambulatory Limitations: no limitations History of Present Illness HPI narrative: This 49-year-old male is coming in with concern of diverticulitis. He is leaving on vacation and they will be driving down to the [employer]. He will not be doing the driving, is going to be a passenger. He has been trying conservative management, has moved to clear liquid diet. He feels pain just above his bladder, will feel the need to urinate, feels like he has to defecate even though he does not have any stool. He has had no fevers chills, no nausea vomiting, no diarrhea. He has had diverticulitis multiple times in the past, he would prefer no labs or imaging. He has not had a colonoscopy in follow-up ever. He was in in 2023 here, got Cipro and Flagyl which is reportedly what works for him. Prior to that we saw him in 2021, same situation per last ED note. He notes he was hospitalized once in [place] with a micro perforation which was managed conservatively. He understands that surgery could be offered if the diverticulitis is in the same area, he states he does not have it frequently enough that he would consider surgery. He has not had a follow-up colonoscopy. Discussed the importance of getting colonoscopy about 2 months after resolution of this. We discussed that there can be lesions or tumors within the colon that can be complicating factors. I do understand and likely agree with him that he has had once your episodes for years now but still have reviewed with him current recommendations and standard guidelines of practice in medicine. He notes that he is going to have difficulty sitting in the car, we did discussed pain management. He is not requesting anything immediately, wants his prescriptions sent to the pharmacy. On [place] prescribing website, the last narcotic medicines he got was when he was in the ER in July of 2020 for with presumed diverticulitis. Related Data Previous Rx's ?Medication ?Instructions ?Recorded ciprofloxacin HCl 500 mg tablet 500 mg PO BID #20 tabs 01/19/25 metronidazole 500 mg tablet 500 mg PO TID #30 tabs 01/19/25 oxycodone 5 mg tablet 5 mg PO Q6H PRN pain #6 tabs 01/19/25 Allergies Allergy/AdvReac Type Severity Reaction Status Date / Time No Known Drug Allergies Allergy Verified 07/12/24 13:50 Review of Systems Status of ROS Reports: 6 or more systems reviewed and unremarkable except as noted in History and below [facility] Social History Smoking Status: Never smoker How often do you have a drink containing alcohol: monthly or less AUDIT-C Alcohol total score: 1 Non-prescribed substance use: denies use Exam Const: Vital Signs, click to edit/add: Vital Signs - 24 hr 01/19/25 19:56 Temperature 98.0 F Pulse Rate [Pulse Oximeter] 62 Respiratory Rate 16 Blood Pressure [Ri ght Upper Arm] 122/88 Pulse Oximetry 96 Oxygen Delivery Me thod Room Air This 49-year-old male seen in exam room 5, alert, interactive, no apparent distress. Sclera clear coming able speak in complete sentences. Lungs clear anteriorly, no wheezing or crackles, no tachypnea. CV regular rate and rhythm, no murmur, normal S1-S2, no S3-S4. Abdomen mildly obese but soft, nontender, no significant distension, no rebound or guarding, no masses. Bowel sounds are present. Documenting provider has reviewed patient's vital signs: yes Course Course ED Course: See HPI, diverticulitis discussion reviewed there. Patient is declining CT imaging, declining labs. I do not find him toxic, do not have any concerns that he has an acute surgical abdomen. Will agree to give him antibiotics and send a few tablets medications for oxycodone for him. He did relate to me that he did have some leftover Flagyl at home and did start this, thus will just give him a dose of Cipro here tonight 500 mg orally. He will not have enough Flagyl to complete a course, will prescribe new medicines for him. Vital Signs Vital signs: Initial Vital Signs Temperature 98.0 F 01/19/25 19:56 Temperature Source Temporal Artery Scan 01/19/25 19:56 Pulse Rate 62 01/19/25 19:56 Pulse Rhythm Regular 01/19/25 19:56 Respiratory Rate 16 01/19/25 19:56 Blood Pressure 122/88 01/19/25 19:56 Blood Pressure Mean 99 01/19/25 19:56 Blood Pressure Position Supine 01/19/25 19:56 Pulse Oximetry 96 01/19/25 19:56 Oxygen Delivery Method Room Air 01/19/25 19:56 Vital Signs Temperature 98.0 F 01/19/25 19:56 Pulse Rate 62 01/19/25 19:56 Respiratory Rate 16 01/19/25 19:56 Blood Pressure 122/88 01/19/25 19:56 Pulse Oximetry 96 01/19/25 19:56 Oxygen Delivery Method Room Air 01/19/25 19:56 Temperature 98.0 F 01/19/25 19:56 Pulse Rate 62 01/19/25 19:56 Respiratory Rate 16 01/19/25 19:56 Blood Pressure 122/88 01/19/25 19:56 Pulse Oximetry 96 01/19/25 19:56 Oxygen Delivery Method Room Air 01/19/25 19:56 Discharge Plan Discharge Clinical Impression: Abdominal pain Qualifiers: Abdominal location: lower abdomen, unspecified Qualified Code(s): R10.30 - Lower abdominal pain, unspecified Patient Disposition: Home, Self-Care Condition: Stable Instructions: Diverticulitis (ED), Diverticulitis Diet (ED) Additional Instructions: You need to be on both Cipro and Flagyl (metronidazole) to adequately treat diverticulitis. Please take as prescribed. Agree with staying on a clear liquid diet until you are feeling better, can advance your diet as per handout recommendations. You really should consider getting your colonoscopy done, want to wait for 6-8 weeks after resolution of the diverticulitis episode. If you are not improving with these medications, feel you are worsening at any point or have concerns, please seek re-evaluation. Did write for a few tablets of oxycodone for pain management to be used during sleep or during your car ride. Can continue with Tylenol and ibuprofen as needed baseline for pain management. Activity Level: Activity as Tolerated Prescriptions: New metronidazole 500 mg tablet 500 mg PO TID Qty: 30 0RF ciprofloxacin HCl 500 mg tablet 500 mg PO BID Qty: 20 0RF oxycodone 5 mg tablet 5 mg PO Q6H PRN (Reason: pain) Qty: 6 0RF Follow Up/Referrals: Provider,Not a Local [Primary Care Provider, Family Practice] Stand Alone Forms: [facility] Inst[facility]
[2025-01-19] MEDS: CIPROFLOXACIN 500 MG TABLET PO (20:19)
== END 2025-01-19 20:38 | disposition home or self-care (01) ==
LOC: ED 20:37
PROVIDERS: Emergency Provider Family Medicine
DX: R10.9 Unspecified abdominal pain (principal)
CPT/HCPCS: 99283; 99284; A9270